=== PATIENT | female | born 1975 | race Caucasian/White ===

== ENCOUNTER 2016-12-30 16:08 | Emergency (ER) | payer OTHER, BC ==
[~2016-12-30 16:08] MED LIST: ACET1TAB33 PO; CHOL10003 PO; CYCL10TA2 PO; DIPH25CA58 PO; HYDR-971 PO; IBUP-1027 PO; METO10TA81 PO; ONDA4TAB10 SL; OXYC-323 PO; PNV1TABL25 PO; PRED20TA PO
[2016-12-30 17:13] VITALS: BP 131/75
[2016-12-30] MEDS ORDERED: KETOROLAC TROMETHAMINE 60 MG/2 ML SYRINGE. IM ONE (17:15)
--- NOTE | 2016-12-30 17:28 | PHYS DOC ---
Past Medical History Past Medical History: Anxiety, Depression, Migraines, Other Additional Past Medical Histor: OCD, VARICOSE VEINS, PROBLEMS WITH 2 DISCS LOWER BACK Past Surgical History: Tubal ligation Alcohol Use: None Drug Use: None Adult General Chief Complaint Chief Complaint: ABDOMINAL PAIN HPI HPI 41-year-old female who has begun her menstrual cycle today that has been having significant lower abdominal cramping. Patient states she's had history of menstrual cramps in the past. Patient states his or her first menstrual cycle after her recent . Patient has been trying Motrin at home without relief. She denies any other significant health problems. She denies any dysuria or hematuria. She denies any abnormal menstrual flow. She has not had any significant abdominal surgeries. She denies any nausea or vomiting or fever. She rates her pain a 7/10 on the pain scale. Review of Systems Review of Systems Constitutional: Denies fever or chills [] Eyes: Denies change in visual acuity, redness, or eye pain [] HENT: Denies nasal congestion or sore throat [] Respiratory: Denies cough or shortness of breath [] Cardiovascular: No additional information not addressed in HPI [] GI: Has abdominal pain, denies nausea, denies vomiting, denies bloody stools or diarrhea [] : Denies dysuria or hematuria [] Musculoskeletal: Denies back pain or joint pain [] Integument: Denies rash or skin lesions [] Neurologic: Denies headache, focal weakness or sensory changes [] Endocrine: Denies polyuria or polydipsia [] Current Medications Current Medications Current Medications Medications (Trade) Dose Ordered [facility] Start Time Stop Time Status Last Admin Dose Admin Ketorolac Tromethamine (Toradol Im) 60 mg 1X ONCE 12/30/16 17:15 12/30/16 17:16 DC 12/30/16 17:15 60 MG Allergies Allergies Allergies Coded Allergies Type Severity Reaction Last Updated Verified latex Allergy Intermediate Rash 08/12/16 Yes naproxen Adverse Reaction Intermediate Nausea and Vomiting 08/12/16 Yes Physical Exam Physical Exam Constitutional: Well developed, well nourished, no acute distress, non-toxic appearance. [] HENT: Normocephalic, atraumatic, bilateral external ears normal, oropharynx moist, no oral exudates, nose normal. [] Eyes: PERRLA, EOMI, conjunctiva normal, no discharge. [] Neck: Normal range of motion, no tenderness, supple, no stridor. [] Cardiovascular:Heart rate regular rhythm, no murmur [] Lungs & Thorax: Bilateral breath sounds clear to auscultation [] Abdomen: Bowel sounds normal, soft, mild suprapubic tenderness, no masses, no pulsatile masses. [] Skin: Warm, dry, no erythema, no rash. [] Back: No tenderness, no CVA tenderness. [] Extremities: No tenderness, no cyanosis, no clubbing, ROM intact, no edema. [] Neurologic: Alert and oriented X 3, normal motor function, normal sensory function, no focal deficits noted. [] Psychologic: Affect normal, judgement normal, mood normal. [] Current Patient Data Vital Signs Vital Signs Date Time Temp Pulse Resp B/P Pulse Ox O2 Delivery O2 Flow Rate FiO2 12/30/16 17:13 98.0 77 131/75 95 Room Air 98.0 EKG EKG [] Radiology/Procedures Radiology/Procedures [] Course & Med Decision Making Course & Med Decision Making Pertinent Labs and Imaging studies reviewed. (See chart for details) This otherwise healthy 41-year-old female is having menstrual cramping was given an IM Toradol injection. Patient states she felt somewhat improved but had to leave the pick her son up from a sporting event. I agreed that this be okay and that she is to receive close follow-up and continue taking her Motrin every 6 hours as discussed for her menstrual cramping. I instructed her that she is to return to the ER if she notices any worsening of her pain or notices any increase in bleeding or has any chest pain, shortness breath, dizziness or lightheadedness. Dragon Disclaimer Dragon Disclaimer This electronic medical record was generated, in whole or in part, using a voice recognition dictation system. Departure Departure Impression: Primary Impression: Menstrual cramps Disposition: 01 HOME, SELF-CARE Admitting Physician: Other Condition: STABLE Referrals: UNKNOWN PCP NAME (PCP) Patient Instructions: Muscle Cramps, [id number] Additional Instructions: Please continue to take 800 mg of Motrin every 6 hours as needed for your menstrual cramping. Return to the ER if you develop any worsening of your symptoms. NAGA RICO DO Dec 30, 2016 17:28
== END 2016-12-30 17:36 | disposition home or self-care (01) ==
LOC: ER 16:08
DX: N94.6 Dysmenorrhea, unspecified (principal); F32.9 Major depressive disorder, single episode, unspecified; F41.9 Anxiety disorder, unspecified; G43.909 Migraine, unspecified, not intractable, without status migrainosus; Z98.51 Tubal ligation status; F42.9 Obsessive-compulsive disorder, unspecified; Z91.040 Latex allergy status; Z88.8 Allergy status to other drugs, medicaments and biological substances
CPT/HCPCS: 96372; 99283; J1885

== ENCOUNTER 2017-01-05 07:41 | Emergency (ER) | payer OTHER, BC ==
[~2017-01-05] VITALS: Ht 182.9 cm; Wt 106.6 kg
[2017-01-05 07:59] LABS: BILIRUBIN,URINE NEGATIVE (NEG); GLUCOSE,URINE NEGATIVE (NEG); NITRITE,URINE NEGATIVE (NEG); PROTEIN,URINE NEGATIVE (NEG-TRACE)
[2017-01-05] MEDS ORDERED: IV NORMAL SALINE 1000ML BAG 1,000 ML IV ONE (08:00)
[2017-01-05] MEDS ORDERED: ONDANSETRON PF 4 MG/2 ML VIAL. IV ONE (08:00)
[2017-01-05 08:22] LABS: CALCIUM 8.3 mg/dL (8.5-10.1); CREATININE 0.8 mg/dL (0.6-1.0); GFR 79.4; POTASSIUM 3.5 mmol/L (3.5-5.1)
[2017-01-05 08:26] LABS: BASO % 0 % (0-3); EOS % 1 % (0-3); HEMATOCRIT 41.3 % (36.0-47.0); HEMOGLOBIN 13.8 g/dL (12.0-15.5); LYMPH # 0.7 x10^3/uL (1.0-4.8); LYMPH % 13 % (24-48); MEAN CORPUSCULAR HEMOGLOBIN 29 pg (25-35); MEAN CORPUSCULAR HGB CONC 33 g/dL (31-37); MEAN CORPUSCULAR VOLUME 87 fL (79-100); MONO % 9 % (0-9); NEUT % 77 % (31-73); PLATELET COUNT 221 x10^3/uL (140-400); RED BLOOD COUNT 4.77 x10^6/uL (3.50-5.40); RED CELL DISTRIBUTION WIDTH 13.1 % (11.5-14.5); WHITE BLOOD COUNT 5.1 x10^3/uL (4.0-11.0)
[2017-01-05 08:26] LABS: WBC,URINE 0 /HPF (0-4)
[2017-01-05 08:27] LABS: BACTERIA,URINE 0 /HPF (0-FEW); SQUAMOUS EPITHELIAL CELL,UR MOD /LPF
[2017-01-05 08:28] LABS: ALBUMIN 3.7 g/dL (3.4-5.0); TOTAL BILIRUBIN 0.4 mg/dL (0.2-1.0); TOTAL PROTEIN 7.5 g/dL (6.4-8.2)
[2017-01-05 08:33] LABS: OBC FLU VALID
[2017-01-05] MEDS ORDERED: ONDA4TAB7 PO (08:50)
--- NOTE | 2017-01-05 08:50 | PHYS DOC ---
Past Medical History Past Medical History: Depression Additional Past Medical Histor: chronic back pain Past Surgical History: Tubal ligation Alcohol Use: None Drug Use: None Adult General Chief Complaint Chief Complaint: NAUSEA/VOMITING/DIARRHA HPI HPI 41-year-old female presents with a 12 hour history of nausea vomiting and diarrhea. She states she does have some abdominal cramping. She had a low-grade fever last night. She does not know anyone else that is sick with this. [] Review of Systems Review of Systems Constitutional: Denies fever or chills [] Eyes: Denies change in visual acuity, redness, or eye pain [] HENT: Denies nasal congestion or sore throat [] Respiratory: Denies cough or shortness of breath [] Cardiovascular: No additional information not addressed in HPI [] GI: Per history of present illness [] : Denies dysuria or hematuria [] Musculoskeletal: Denies back pain or joint pain [] Integument: Denies rash or skin lesions [] Neurologic: Denies headache, focal weakness or sensory changes [] Endocrine: Denies polyuria or polydipsia [] Current Medications Current Medications Current Medications Medications (Trade) Dose Ordered Sig/Nella Start Time Stop Time Status Last Admin Dose Admin Ondansetron HCl (Zofran) 8 mg 1X ONCE 01/05/17 08:00 01/05/17 08:01 DC 01/05/17 08:09 8 MG Sodium Chloride (Iv Sodium Chloride 0.9% 1000ml Bag) 1,000 ml @ 1,000 mls/hr 1X ONCE 01/05/17 08:00 01/05/17 08:59 01/05/17 08:10 1,000 MLS/HR Allergies Allergies Allergies Coded Allergies Type Severity Reaction Last Updated Verified latex Allergy Intermediate Rash 08/12/16 Yes naproxen Adverse Reaction Intermediate Nausea and Vomiting 08/12/16 Yes Physical Exam Physical Exam Constitutional: Well developed, well nourished, no acute distress, non-toxic appearance. [] HENT: Normocephalic, atraumatic, bilateral external ears normal, oropharynx moist, no oral exudates, nose normal. [] Eyes: PERRLA, EOMI, conjunctiva normal, no discharge. [] Neck: Normal range of motion, no tenderness, supple, no stridor. [] Cardiovascular:Heart rate regular rhythm, no murmur [] Lungs & Thorax: Bilateral breath sounds clear to auscultation [] Abdomen: Bowel sounds normal, soft, no tenderness, no masses, no pulsatile masses. [] Skin: Warm, dry, no erythema, no rash. [] Back: No tenderness, no CVA tenderness. [] Extremities: No tenderness, no cyanosis, no clubbing, ROM intact, no edema. [] Neurologic: Alert and oriented X 3, normal motor function, normal sensory function, no focal deficits noted. [] Psychologic: Affect normal, judgement normal, mood normal. [] Current Patient Data Vital Signs Vital Signs Date Time Temp Pulse Resp B/P Pulse Ox O2 Delivery O2 Flow Rate FiO2 01/05/17 07:53 98.2 79 20 113/82 95 Room Air 98.2 Lab Values Laboratory Tests Test 01/05/17 07:45 01/05/17 07:51 01/05/17 08:05 Urine Collection Type Unknown Urine Color Yellow Urine Clarity Clear Urine pH 6.0 Urine Specific [place] 1.025 Urine Protein Negativemg/dL (NEG-TRACE) Urine Glucose (UA) Negativemg/dL (NEG) Urine Ketones (Stick) Negativemg/dL (NEG) Urine Blood Small (NEG) Urine Nitrite Negative (NEG) Urine Bilirubin Negative (NEG) Urine Urobilinogen Dipstick 1.0mg/dL (0.2 mg/dL) Urine Leukocyte Esterase Negative (NEG) Urine RBC 1-2/HPF (0-2) Urine WBC 0/HPF (0-4) Urine Squamous Epithelial Cells Mod/LPF Urine Bacteria 0/HPF (0-FEW) Urine Mucus Marked/LPF POC Urine HCG, Qualitative Hcg negative (Negative) White Blood Count 5.1x10^3/uL (4.0-11.0) Red Blood Count 4.77x10^6/uL (3.50-5.40) Hemoglobin 13.8g/dL (12.0-15.5) Hematocrit 41.3% (36.0-47.0) Mean Corpuscular Volume 87fL (79-100) Mean Corpuscular Hemoglobin 29pg (25-35) Mean Corpuscular Hemoglobin Concent 33g/dL (31-37) Red Cell Distribution Width 13.1% (11.5-14.5) Platelet Count 221x10^3/uL (140-400) Neutrophils (%) (Auto) 77% (31-73) H Lymphocytes (%) (Auto) 13% (24-48) L Monocytes (%) (Auto) 9% (0-9) Eosinophils (%) (Auto) 1% (0-3) Basophils (%) (Auto) 0% (0-3) Neutrophils # (Auto) 3.9x10^3uL (1.8-7.7) Lymphocytes # (Auto) 0.7x10^3/uL (1.0-4.8) L Monocytes # (Auto) 0.4x10^3/uL (0.0-1.1) Eosinophils # (Auto) 0.1x10^3/uL (0.0-0.7) Basophils # (Auto) 0.0x10^3/uL (0.0-0.2) Sodium Level 143mmol/L (136-145) Potassium Level 3.5mmol/L (3.5-5.1) Chloride Level 105mmol/L (98-107) Carbon Dioxide Level 24mmol/L (21-32) Anion Gap 14 (6-14) Blood Urea Nitrogen 13mg/dL (7-20) Creatinine 0.8mg/dL (0.6-1.0) Estimated GFR (Cockcroft-Gault) 79.4 BUN/Creatinine Ratio 16 (6-20) Glucose Level 101mg/dL (70-99) H Calcium Level 8.3mg/dL (8.5-10.1) L Total Bilirubin 0.4mg/dL (0.2-1.0) Aspartate Amino Transferase (AST) 23U/L (15-37) Alanine Aminotransferase (ALT) 17U/L (14-59) Alkaline Phosphatase 58U/L (46-116) Total Protein 7.5g/dL (6.4-8.2) Albumin 3.7g/dL (3.4-5.0) Albumin/Globulin Ratio 1.0 (1.0-1.7) Influenza Type A Antigen Negative (NEGATIVE) Influenza Type B Antigen Negative (NEGATIVE) Laboratory Tests 01/05/17 08:05 Laboratory Tests 01/05/17 08:05 EKG EKG [] Radiology/Procedures Radiology/Procedures [] Course & Med Decision Making Course & Med Decision Making Pertinent Labs and Imaging studies reviewed. (See chart for details) [ED course: Evaluation reveals a 41-year-old female with nausea vomiting and diarrhea. She is given IV fluids and Zofran during her stay in the department which did help alleviate her symptoms. Laboratory studies were reviewed and were unremarkable. I will provide the patient with prescription for Zofran to take at home. I encouraged her to take Tylenol or Motrin for low-grade fever.] Dragon Disclaimer Dragon Disclaimer This electronic medical record was generated, in whole or in part, using a voice recognition dictation system. Departure Departure Impression: Primary Impression: Gastroenteritis Disposition: HOME, SELF-CARE Condition: IMPROVED Referrals: NO PCP (PCP) Patient Instructions: Diarrhea, Nausea and Vomiting Additional Instructions: Thank you for allowing us to participate in your care today. Followup with your primary care physician in 3 days if your symptoms do not improve. Return to the emergency department you have any new or concerning findings. This should be evaluated by the primary care physician and any necessary consulting services for continued management within a few days after discharge. Return to emergency room if you have any new or concerning symptoms including but not limited to fever, chills, nausea, vomiting, intractable pain, any new rashes, chest pain, shortness of air, uncontrolled bleeding, difficulty breathing, and/or vision loss. You may have been prescribed medication that can change in your level of thinking and ability to operate machinery. These medications include hydrocodone and Ativan. Also, Benadryl has been known to do this as well. Be sure to check with your pharmacist and ask if the medications you've prescribed can affect your level of consciousness. I recommend not operating heavy machinery or driving while on medication such as these. Scripts Ondansetron Hcl (Zofran)4 Mg Tablet1 Tab PO Q8HRS PRN NAUSEA #20 TAB Prov:TUSHAR LEE DO 01/05/17 TUSHAR LEE DO Jan 05, 2017 08:50
[2017-01-05 08:58] VITALS: BP 103/72
== END 2017-01-05 08:59 | disposition home or self-care (01) ==
LOC: ER 07:41
DX: K52.9 Noninfective gastroenteritis and colitis, unspecified (principal); F32.9 Major depressive disorder, single episode, unspecified; G89.29 Other chronic pain; Z98.51 Tubal ligation status; Z88.8 Allergy status to other drugs, medicaments and biological substances; Z91.040 Latex allergy status
CPT/HCPCS: 36415; 80053; 81001; 81025; 85027; 87804; 96361; 96374; 99284; J2405; J7030

== ENCOUNTER 2017-01-12 07:16 | Emergency (ER) | payer BC, OTHER ==
[~2017-01-12] VITALS: Ht 182.9 cm; Wt 106.6 kg
[~2017-01-12 07:16] MED LIST changes: +ONDA4TAB7 PO
[2017-01-12] MEDS ORDERED: ACETAMINOPHEN 500 MG TABLET PO ONE (07:45)
--- NOTE | 2017-01-12 07:58 | EKG ---
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
[2017-01-12 08:11] LABS: OBC FLU VALID
[2017-01-12] MEDS ORDERED: IBUPROFEN 800 MG TABLET. PO ONE (08:15)
--- NOTE | 2017-01-12 08:15 | ED.ADGEN ---
Past Medical History Past Medical History: Anxiety, Depression, Migraines Additional Past Medical Histor: chronic back pain Past Surgical History: Tubal ligation Alcohol Use: None Drug Use: None Adult General Chief Complaint Chief Complaint: Palpitations HPI HPI Patient is a 41 year old woman, history of migraine headaches, chronic back pain, who presents to the emergency department with a complaint of generalized malaise, cough, rhinorrhea, who states that she awoke this morning with a headache, cough, and feeling of palpitations, also feeling sweaty and clammy. She states that she did take some Tylenol before coming to the ED today. States that her headache is located all over her head, not consistent with her typical migraine symptoms, denies any injuries, any fevers or chills, any urinary or GI complaints, positive sick contacts in her son, who also has an upper respiratory type infection. She states that her rhinorrhea began several days ago, but she began feeling worse last night into this morning. No recent travel or surgery, no weakness numbness or tingling, no chest pain or shortness of breath. Cough is nonproductive. She did receive her flu vaccination this year. Patient's heart rate is in the 60s and 70s, blood pressure 137/86, oxygen saturation of 100% on room air, respiratory rate is 20 and unlabored. She states she is not experiencing palpitations at this time. Denies any syncope or near syncope type symptoms. Review of Systems Review of Systems Constitutional: Denies fever or chills. [] Generalized malaise. Eyes: Denies change in visual acuity. [] HENT: Nasal congestion with rhinorrhea, no sore throat. [] Respiratory: Cough, nonproductive, no shortness of breath. Cardiovascular: Denies chest pain or edema. [] GI: Denies abdominal pain, nausea, vomiting, bloody stools or diarrhea. [] : Denies dysuria. [] Musculoskeletal: Denies back pain or joint pain. [] Integument: Denies rash. [] Neurologic: Denies focal weakness or sensory changes. Headache, located all across head. Endocrine: Denies polyuria or polydipsia. [] Lymphatic: Denies swollen glands. [] Psychiatric: Denies depression or anxiety. [] Current Medications Current Medications Current Medications Medications (Trade) Dose Ordered Sig/Nella Start Time Stop Time Status Last Admin Dose Admin Acetaminophen (Tylenol) 1,000 mg 1X ONCE 01/12/17 07:45 01/12/17 07:46 DC Ibuprofen (Motrin) 800 mg 1X ONCE 01/12/17 08:15 01/12/17 08:17 DC 01/12/17 08:28 800 MG Allergies Allergies Allergies Coded Allergies Type Severity Reaction Last Updated Verified latex Allergy Intermediate Rash 08/12/16 Yes Physical Exam Physical Exam Constitutional: Well developed, well nourished, no acute distress, non-toxic appearance. [] HENT: Normocephalic, atraumatic, bilateral external ears normal, oropharynx moist, mildly injected oropharynx, no exudates identified, patient with clear rhinorrhea bilaterally and mild turbinate swelling.] Eyes: PERRLA, EOMI, conjunctiva normal, no discharge. [] Neck: Normal range of motion, no tenderness, supple, no stridor. [] Cardiovascular:Heart rate regular rhythm, no murmur, S1, S2, no rubs or gallops. [] Lungs & Thorax: Bilateral breath sounds clear to auscultation, no wheezing, rhonchi, rales. No chest tenderness or crepitus. [] Abdomen: Bowel sounds normal, soft, no rebound, rigidity, no guarding, no tenderness, no masses, no pulsatile masses. [] Skin: Warm, dry, no erythema, no rash. [] Back: No tenderness, no CVA tenderness. [] Extremities: No tenderness, no cyanosis, no clubbing, ROM intact, no edema. [ Negative Homans sign.] Neurologic: Alert and oriented X 3, normal motor function, normal sensory function, no focal deficits noted. [] Psychologic: Affect normal, judgement normal, mood normal. [] Current Patient Data Vital Signs Vital Signs Date Time Temp Pulse Resp B/P Pulse Ox O2 Delivery O2 Flow Rate FiO2 01/12/17 09:00 62 134/89 92 Room Air 01/12/17 07:20 97.9 16 97.9 Lab Values Laboratory Tests Test 01/12/17 07:30 01/12/17 07:34 01/12/17 08:03 01/12/17 08:15 Glucose (Fingerstick) 112mg/dL (70-99) H Influenza Type A Antigen Negative (NEGATIVE) Influenza Type B Antigen Negative (NEGATIVE) Urine Collection Type Unknown Urine Color Yellow Urine Clarity Clear Urine pH 6.5 Urine Specific [place] 1.025 Urine Protein Negativemg/dL (NEG-TRACE) Urine Glucose (UA) Negativemg/dL (NEG) Urine Ketones (Stick) Negativemg/dL (NEG) Urine Blood Negative (NEG) Urine Nitrite Negative (NEG) Urine Bilirubin Negative (NEG) Urine Urobilinogen Dipstick 1.0mg/dL (0.2 mg/dL) Urine Leukocyte Esterase Negative (NEG) Urine RBC 1-2/HPF (0-2) Urine WBC Occ/HPF (0-4) Urine Bacteria Few/HPF (0-FEW) POC Urine HCG, Qualitative Hcg negative (Negative) Test 01/12/17 08:23 POC Hemoglobin 12.9g/dL (12-15) POC Hematocrit 38% (36-40) POC Sodium 143mmol/L (135-145) POC Potassium 3.3mmol/L (3.5-5.0) L POC Chloride 104mmol/L (98-110) POC Total CO2 25mmol/L (23-32) Anion Gap 18mmol/L (6-14) H POC Blood Urea Nitrogen 10mg/dL (8-26) POC Creatinine 0.7mg/dL (0.5-1.4) Glucose Level 101mg/dL (70-99) H POC Ionized Calcium ([place]) 1.17mmol/L (1.13-1.32) Laboratory Tests 01/12/17 08:23 EKG EKG EC: Sinus rhythm, heart rate 66 bpm, single PVC noted, QTc of 436, MS 172 , no ST elevations or depressions, aside from single PVC, no other maladies identified. As interpreted by me. [] Radiology/Procedures Radiology/Procedures No indication. [] Course & Med Decision Making Course & Med Decision Making Pertinent Labs and Imaging studies reviewed. (See chart for details) Patient with evidence upper airway viral type infection, no evidence of lower airspace involvement, no evidence for imaging. ECG reveals a single PVC, patient in sinus rhythm on the monitor, heart rate in the 60s and 70s, blood pressures are 130s over 80s to 90s. Neurological examination is normal. Influenza obtained in the emergency department, which was negative, but patient' s symptoms are consistent with a viral infection. I-STAT obtained, does not reveal any acutely concerning findings, aside from mild hypokalemia with a potassium of 3.3, on reevaluation, patient received ibuprofen in the ED, and is resting comfortably. She states she is feeling much better at this time. I discussed with her fluids, rest, potassium diet, and concerning symptoms that would prompt return to the emergency department. Patient was also given a work note for 1-2 days off from work to allow her to rest and recover. Patient voiced understanding and agreement with this plan. Discharged home in stable condition to use supportive measures such as acetaminophen and I ibuprofen as directed on the packaging, with Flonase for nasal congestion, to follow-up as needed, and to return to the ED for concerning symptoms as discussed. Dragon Disclaimer Dragon Disclaimer This electronic medical record was generated, in whole or in part, using a voice recognition dictation system. Departure Impression: Primary Impression: Upper respiratory infection Disposition: ADMITTED INPATIENT Condition: IMPROVED Scripts Fluticasone Propionate (Flonase Allergy Relief)9.9 Ml [place].susp2 Sprays NS DAILY PRN CONGESTION #1 BOTTLE Prov:EVETTE SIMMS DO 01/12/17 Problem Qualifiers Primary Impression: Upper respiratory infection URI type: unspecified viral URI Qualified Code: J06.9 - Acute upper respiratory infection, unspecified EVETTE SIMMS DO Jan 12, 2017 08:15
[2017-01-12 08:30] LABS: BILIRUBIN,URINE NEGATIVE (NEG); GLUCOSE,URINE NEGATIVE (NEG); NITRITE,URINE NEGATIVE (NEG); PH,URINE 6.5; PROTEIN,URINE NEGATIVE (NEG-TRACE)
[2017-01-12 08:33] LABS: POTASSIUM ISTAT 3.3 mmol/L (3.5-5.0)
[2017-01-12 08:53] LABS: BACTERIA,URINE FEW /HPF (0-FEW); WBC,URINE OCC /HPF (0-4)
[2017-01-12 09:00] VITALS: BP 134/89
[2017-01-12] MEDS ORDERED: FLUT9.9S NS (09:38)
== END 2017-01-12 09:46 | disposition home or self-care (01) ==
LOC: ER 07:16
DX: J06.9 Acute upper respiratory infection, unspecified (principal); R00.2 Palpitations; R51 Headache; F32.9 Major depressive disorder, single episode, unspecified; F41.9 Anxiety disorder, unspecified; G43.909 Migraine, unspecified, not intractable, without status migrainosus; Z91.040 Latex allergy status; G89.29 Other chronic pain; Z98.51 Tubal ligation status
CPT/HCPCS: 80047; 81001; 81025; 82947; 87804; 93005; 99285-25

== ENCOUNTER 2017-04-05 17:36 | Emergency (ER) | payer BC, OTHER ==
[~2017-04-05 17:36] MED LIST changes: +FLUT9.9S NS
[2017-04-05 17:47] VITALS: BP 139/94
[2017-04-05] MEDS ORDERED: HYDR-971 PO (18:06)
--- NOTE | 2017-04-05 18:06 | PHYS DOC ---
Past Medical History Past Medical History: Anxiety, Depression, Migraines Additional Past Medical Histor: chronic back pain Past Surgical History: Tubal ligation Alcohol Use: None Drug Use: None Adult General Chief Complaint Chief Complaint: HEADACHE HPI HPI Patient is a 41 year old female who drove herself to the ED with the complaint of headache for 3 days. Patient states she does have a history of migraines, this does not really feel like a migraine. She did use her migraine medication and it did not help. Ibuprofen and Tylenol. She's tried drinking plenty of fluids. 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 The pain is located on both sides of her forehead. She has some photophobia but not as much as she usually has with a migraine. She did not have an aura with this headache. She has no discharge from her eyes or nose. She 's had no fever or chills, no stiff neck, no sore throat or postnasal drainage. She doesn't feel that her sinuses are clogged. Patient states she has been trying to get plenty of sleep but she just tosses and turns because her headache is bothering her. This is not a particularly bad headache, just one that she can't seem to shake. PCP Dr. Schreiber Review of Systems Review of Systems Constitutional: Denies fever or chills [] Eyes: Denies change in visual acuity, redness, or eye pain [] HENT: Denies nasal congestion or sore throat [] Respiratory: Denies cough or shortness of breath [] GI: Denies nausea or vomiting Neurologic: Denies focal weakness or sensory changes [] Allergies Allergies Allergies Coded Allergies Type Severity Reaction Last Updated Verified latex Allergy Intermediate Rash 08/12/16 Yes Physical Exam Physical Exam Constitutional: Well developed, well nourished, no acute distress, non-toxic appearance. Alert, mentating normally, normal speech and gait. HENT: Normocephalic, atraumatic, bilateral external ears normal, bilateral TMs and bilateral EACs normal, oropharynx moist, no oral exudates, no tonsillitis, nose normal. [] Eyes: PERRLA, EOMI, conjunctiva normal, no discharge. [] Neck: Normal range of motion, no tenderness, no lymphadenopathy or masses, supple, no stridor. [] Cardiovascular:Heart rate regular rhythm, no murmur [] Lungs & Thorax: Bilateral breath sounds clear to auscultation [] Skin: Warm, dry, no erythema, no rash. [] Extremities: No tenderness, no cyanosis, no clubbing, ROM intact, no edema. [] Neurologic: Alert and oriented X 3, normal motor function, normal sensory function, no focal deficits noted. Normal speech, finger waver 5 over 5 and equal bilaterally. Current Patient Data Vital Signs Vital Signs Date Time Temp Pulse Resp B/P (MAP) Pulse Ox O2 Delivery O2 Flow Rate FiO2 04/05/17 17:47 98.8 100 18 139/94 (109) 97 Room Air 98.8 EKG EKG [] Radiology/Procedures Radiology/Procedures [] Course & Med Decision Making Course & Med Decision Making Pertinent Labs and Imaging studies reviewed. (See chart for details) 41-year-old female with a history of migraine headaches presents with a headache for 3 days that is not a particularly severe headache but she just cannot seem to get rid of it. She has been able to go to work, she drove herself here, the headache seems like a benign headache to me. I discussed with her that we could try giving her doses stronger pain medication to take at bedtime tonight to see if she can get some sleep and get rid of the headache. She did drive herself here so a strong pain med in the ED is not an option. She is agreeable to that plan. She does have a primary care physician that she can follow up with if needed and I gave her strict return precautions, see instructions. [] Dragon Disclaimer Dragon Disclaimer This electronic medical record was generated, in whole or in part, using a voice recognition dictation system. Departure Departure Impression: Primary Impression: Headache Disposition: HOME, SELF-CARE Condition: STABLE Referrals: NO PCP (PCP) Patient Instructions: General Headache Without Cause Additional Instructions: Today, as we discussed, your headache does not have features that are particularly concerning. We will treat it as a benign headache that you're having trouble getting rid of, if you do develop any fever, vomiting, visual problems, speech or gait difficulties, or other symptoms, return for reevaluation. At bedtime, take one or 2 hydrocodone and plan to sleep in a dark quiet room for at least 8 hours[address] No driving for 8 hours after taking. If you continue having headaches like this, see your doctor for recheck. Scripts Hydrocodone/Apap 5-325 (NORCO 5-325 TABLET) 1 Each Tablet 1-2 TAB PO Q4-6HRS for HEADACHE, #6 TAB Prov: DM LOREDO MD 04/05/17 DM LOREDO MD April 05, 2017 18:06
== END 2017-04-05 18:30 | disposition home or self-care (01) ==
LOC: ER 17:36
DX: R51 Headache (principal); F41.9 Anxiety disorder, unspecified; F32.9 Major depressive disorder, single episode, unspecified; G89.29 Other chronic pain; G43.909 Migraine, unspecified, not intractable, without status migrainosus; Z91.040 Latex allergy status
CPT/HCPCS: 99283

== ENCOUNTER 2018-02-25 15:51 | Emergency (ER) | payer BC, OTHER ==
[2018-02-25] MEDS: ONDANSETRON ODT 4 MG TAB.RAPDIS. PO (16:29)
[2018-02-25] MEDS: ACETAMINOPHEN 500 MG TABLET PO (16:29)
== END 2018-02-25 17:40 | disposition home or self-care (01) ==
LOC: ER 15:51
DX: R51 Headache (principal); R11.0 Nausea; F41.9 Anxiety disorder, unspecified; F32.9 Major depressive disorder, single episode, unspecified; G89.29 Other chronic pain; G43.909 Migraine, unspecified, not intractable, without status migrainosus; Z91.040 Latex allergy status
CPT/HCPCS: 99283; Q0162

== ENCOUNTER 2019-03-20 15:56 | Emergency (ER) | payer BC ==
[~2019-03-20] VITALS: Ht 182.9 cm; Wt 98.9 kg
[~2019-03-20 15:56] MED LIST changes: +CODE1CAP8 PO; +HYDR-3164 PO; -HYDR-971 PO; -OXYC-323 PO; +OXYC1TAB15 PO; +PROC10TA57 PO
--- NOTE | 2019-03-20 16:53 | PHYS DOC ---
Past Medical History Past Medical History: Anxiety, Depression, DVT, IBS, Migraines Additional Past Medical Histor: chronic back pain, varicose veins Past Surgical History: Tubal ligation Alcohol Use: None Drug Use: None Adult General Chief Complaint Chief Complaint: ABDOMINAL PAIN HPI HPI Patient is a 43-year-old female who presents to the emergency department for evaluation of epigastric abdominal pain, with radiation towards her back and right infrascapular area. She states the pain began worsening this morning. She states she has had similar pain on and off in the past, and in December went to the [facility] nearby, and had a CT scan was diagnosed with cholelithiasis. Her PCP referred her to a surgeon and she is scheduled to undergo cholecystectomy at the end of this month. She has got fatty foods out of her diet, but states that eating does not seem to worsen or affect her pain since she has done that. However she states that the pain flared up again this morning, and she is uncertain what precipitated this episode. She describes the pain as a sharp and crampy pain. She denies any chest pain shortness of breath. There are no known alleviating or exacerbating factors to the patient's symptoms at this time. Review of Systems Review of Systems Constitutional: Denies fever or chills [] Eyes: Denies change in visual acuity, redness, or eye pain [] HENT: Denies nasal congestion or sore throat [] Respiratory: Denies cough or shortness of breath [] Cardiovascular: The patient denies any shortness of breath, chest pain, palpitations, or orthopnea[] GI: Denies nausea, vomiting, bloody stools or diarrhea [] : Denies dysuria or hematuria [] Musculoskeletal: Denies back pain or joint pain [] Integument: Denies rash or skin lesions [] Neurologic: Denies headache, focal weakness or sensory changes [] Endocrine: Denies polyuria or polydipsia [] All other systems were reviewed and found to be within normal limits, except as documented in this note. Current Medications Current Medications Current Medications Medications (Trade) Dose Ordered Sig/Nella Start Time Stop Time Status Last Admin Dose Admin Ketorolac Tromethamine (Toradol 30mg Vial) 30 mg 1X ONCE 03/20/19 17:00 03/20/19 17:01 DC 03/20/19 17:07 30 MG Allergies Allergies Allergies Coded Allergies Type Severity Reaction Last Updated Verified latex Allergy Intermediate Rash 08/12/16 Yes Physical Exam Physical Exam PHYSICAL EXAM: CONSTITUTIONAL: Well developed, well nourished HEAD: normocephalic, atraumatic EENT: PERRL, EOMI. Conjunctivae normal color, sclerae non-icteric; moist mucous membranes. NECK: Supple, non-tender; no meningismus. LUNGS: Lungs CTA, breathing even and unlabored. Normal air movement. HEART: Regular rate and rhythm, no murmur CHEST: No deformity; non-tender ABDOMEN: The abdomen is soft, there is mild epigastric tenderness to palpation, without rebound or guarding. The right upper quadrant itself is relatively nontender, Turner's sign is absent. The remainder the abdomen is soft and non- tender, no masses or bruits. There is no Lower abdominal tenderness to palpation. EXTREM: Normal ROM; no deformity, no calf tenderness. Normal pulses palpable in all extremities. There is no pedal edema. SKIN: No rash; no diaphoresis NEURO: Alert; normal speech and cognition; CN's grossly intact; strength grossly intact without focal deficit. BACK: No CVA TTP. Current Patient Data Vital Signs Vital Signs Date Time Temp Pulse Resp B/P (MAP) Pulse Ox O2 Delivery O2 Flow Rate FiO2 03/20/19 17:42 81 18 114/69 (84) 100 Room Air 03/20/19 16:30 98.2 98.2 Lab Values Laboratory Tests Test 03/20/19 16:53 White Blood Count 7.3 x10^3/uL (4.0-11.0) Red Blood Count 4.44 x10^6/uL (3.50-5.40) Hemoglobin 13.3 g/dL (12.0-15.5) Hematocrit 39.3 % (36.0-47.0) Mean Corpuscular Volume 89 fL (79-100) Mean Corpuscular Hemoglobin 30 pg (25-35) Mean Corpuscular Hemoglobin Concent 34 g/dL (31-37) Red Cell Distribution Width 12.9 % (11.5-14.5) Platelet Count 305 x10^3/uL (140-400) Neutrophils (%) (Auto) 55 % (31-73) Lymphocytes (%) (Auto) 31 % (24-48) Monocytes (%) (Auto) 9 % (0-9) Eosinophils (%) (Auto) 5 % (0-3) H Basophils (%) (Auto) 1 % (0-3) Neutrophils # (Auto) 4.0 x10^3uL (1.8-7.7) Lymphocytes # (Auto) 2.3 x10^3/uL (1.0-4.8) Monocytes # (Auto) 0.7 x10^3/uL (0.0-1.1) Eosinophils # (Auto) 0.3 x10^3/uL (0.0-0.7) Basophils # (Auto) 0.0 x10^3/uL (0.0-0.2) Sodium Level 138 mmol/L (136-145) Potassium Level 4.0 mmol/L (3.5-5.1) Chloride Level 106 mmol/L (98-107) Carbon Dioxide Level 21 mmol/L (21-32) Anion Gap 11 (6-14) Blood Urea Nitrogen 12 mg/dL (7-20) Creatinine 1.1 mg/dL (0.6-1.0) H Estimated GFR (Cockcroft-Gault) 54.5 BUN/Creatinine Ratio 11 (6-20) Glucose Level 99 mg/dL (70-99) Calcium Level 9.2 mg/dL (8.5-10.1) Total Bilirubin 0.2 mg/dL (0.2-1.0) Aspartate Amino Transferase (AST) 13 U/L (15-37) L Alanine Aminotransferase (ALT) 11 U/L (14-59) L Alkaline Phosphatase 60 U/L (46-116) Total Protein 7.6 g/dL (6.4-8.2) Albumin 3.9 g/dL (3.4-5.0) Albumin/Globulin Ratio 1.1 (1.0-1.7) Lipase 114 U/L (73-393) Laboratory Tests 03/20/19 16:53 Laboratory Tests 03/20/19 16:53 EKG EKG [Normal sinus rhythm with a normal rate, normal axis, normal intervals, there a re no acute ischemic ST/T changes.] Radiology/Procedures Radiology/Procedures []PROCEDURE: ABDOMEN LTD ABDOMEN LTD History: Right upper quadrant pain Comparison: None. Findings: Multiple sonographic images of the abdomen are submitted. There is coarsening of the hepatic echotexture. No focal hepatic lesion is demonstrated. There is segmental visualization of the inferior vena cava. There is no abnormality of the visualized pancreas. Right lobe of the liver measured 17.5 cm longitudinal. There is a gallstone up to about 0.9 cm. There is no demonstrable pericholecystic fluid. Common bile duct is within normal limits at 0.4 cm. Right kidney measured 12.5 x 5.1 x 5.6 cm, no hydronephrosis. Impression: 1. There is cholelithiasis, no biliary ductal dilatation. 2. There is mild hepatic steatosis. Course & Med Decision Making Course & Med Decision Making Pertinent Labs and Imaging studies reviewed. (See chart for details) []6:00 PM:Patient remains stable. I discussed test results, the need for close follow-up, and return precautions. The patient was unable to provide a urine specimen, needed to leave to brain picker her child. She recognized the inability to rule out a urinary problem, although clinically does not highly suspected. Dragon Disclaimer Dragon Disclaimer This electronic medical record was generated, in whole or in part, using a voice recognition dictation system. Departure Departure Impression: Primary Impression: Biliary colic Disposition: HOME, SELF-CARE Condition: STABLE Referrals: UNKNOWN PCP NAME (PCP) Patient Instructions: Biliary Colic Scripts Acetaminophen With Codeine (TYLENOL WITH CODEINE #3 TABLET) 1 Each Tablet 1 TAB PO PRN Q6HRS PRN for PAIN, #15 TAB Prov: ANITA LOMELI MD 03/20/19 ANITA LOMELI MD March 20, 2019 16:53
[2019-03-20] MEDS ORDERED: KETOROLAC 30 MG/ML VIAL. IV ONE (17:00)
[2019-03-20 17:09] LABS: BASO % 1 % (0-3); EOS # 0.3 x10^3/uL (0.0-0.7); EOS % 5 % (0-3); HEMATOCRIT 39.3 % (36.0-47.0); HEMOGLOBIN 13.3 g/dL (12.0-15.5); LYMPH # 2.3 x10^3/uL (1.0-4.8); LYMPH % 31 % (24-48); MEAN CORPUSCULAR HEMOGLOBIN 30 pg (25-35); MEAN CORPUSCULAR HGB CONC 34 g/dL (31-37); MEAN CORPUSCULAR VOLUME 89 fL (79-100); MONO # 0.7 x10^3/uL (0.0-1.1); MONO % 9 % (0-9); NEUT % 55 % (31-73); PLATELET COUNT 305 x10^3/uL (140-400); RED BLOOD COUNT 4.44 x10^6/uL (3.50-5.40); RED CELL DISTRIBUTION WIDTH 12.9 % (11.5-14.5); WHITE BLOOD COUNT 7.3 x10^3/uL (4.0-11.0)
[2019-03-20 17:12] LABS: CALCIUM 9.2 mg/dL (8.5-10.1); CREATININE 1.1 mg/dL (0.6-1.0); GFR 54.5
[2019-03-20 17:18] LABS: ALBUMIN 3.9 g/dL (3.4-5.0); ALBUMIN/GLOBULIN RATIO 1.1 (1.0-1.7); TOTAL BILIRUBIN 0.2 mg/dL (0.2-1.0); TOTAL PROTEIN 7.6 g/dL (6.4-8.2)
--- NOTE | 2019-03-20 17:35 | RAD ---
ABDOMEN LTD History: Right upper quadrant pain Comparison: None. Findings: Multiple sonographic images of the abdomen are submitted. There is coarsening of the hepatic echotexture. No focal hepatic lesion is demonstrated. There is segmental visualization of the inferior vena cava. There is no abnormality of the visualized pancreas. Right lobe of the liver measured 17.5 cm longitudinal. There is a gallstone up to about 0.9 cm. There is no demonstrable pericholecystic fluid. Common bile duct is within normal limits at 0.4 cm. Right kidney measured 12.5 x 5.1 x 5.6 cm, no hydronephrosis. Impression: 1. There is cholelithiasis, no biliary ductal dilatation. 2. There is mild hepatic steatosis. Electronically signed by: Catracho Nicole MD (03/20/2019 5:33 PM) [id number]
[2019-03-20 17:42] VITALS: BP 114/69
[2019-03-20] MEDS ORDERED: ACET-704 PO (18:07)
--- NOTE | 2019-03-21 06:53 | EKG ---
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
== END 2019-03-20 18:03 | disposition home or self-care (01) ==
LOC: ER 15:56
DX: K80.50 Calculus of bile duct without cholangitis or cholecystitis without obstruction (principal); F41.9 Anxiety disorder, unspecified; F32.9 Major depressive disorder, single episode, unspecified; G89.29 Other chronic pain; G43.909 Migraine, unspecified, not intractable, without status migrainosus; Z86.718 Personal history of other venous thrombosis and embolism; Z98.51 Tubal ligation status; Z91.040 Latex allergy status
CPT/HCPCS: 36415; 76705; 80053; 83690; 85025; 93005; 96374; 99285; J1885